=== PATIENT | male | born 1995 | race Caucasian/White ===

== ENCOUNTER 2017-08-05 07:37 | Inpatient (IN) | payer BC, OTHER ==
[~2017-08-05] VITALS: Ht 180.3 cm; Wt 76.2 kg
[2017-08-05] MEDS ORDERED: hydrALAZINE HCL 50 MG TABLET PO PRN (11:15)
[2017-08-05] MEDS ORDERED: LORAZEPAM 1 MG TABLET PO PRN (11:15)
[2017-08-05] MEDS ORDERED: ACETAMINOPHEN 325 MG TABLET PO PRN (11:15)
[2017-08-05] MEDS ORDERED: NICOTINE 14 MG/24HR PATCH TD PRN (11:15)
[2017-08-05] MEDS ORDERED: NICOTINE POLACRILEX 4 MG GUM-PK OF TEN BC PRN (11:15)
[2017-08-05] MEDS ORDERED: ONDANSETRON ODT 4 MG TAB.RAPDIS SL PRN (11:15)
[2017-08-05] MEDS ORDERED: MAGNESIUM HYDROXIDE 30 ML LIQUID UDC PO PRN (11:15)
[2017-08-05] MEDS ORDERED: ONDANSETRON 4 MG/2 ML VIAL IM PRN (11:15)
[2017-08-05] MEDS ORDERED: MIRALAX 17 GM POWD.PACK PO PRN (11:15)
[2017-08-05] MEDS ORDERED: diphenhydrAMINE 50 MG CAPSULE PO PRN (11:15)
[2017-08-05] MEDS ORDERED: METHOCARBAMOL 750 MG TABLET PO PRN (11:15)
[2017-08-05] MEDS ORDERED: DICYCLOMINE HCL 20 MG TABLET PO PRN (11:15)
[2017-08-05] MEDS ORDERED: HYDROXYZINE PAMOATE 25 MG CAPSULE PO PRN (11:15)
[2017-08-05] MEDS ORDERED: MAG HYDROX/AL HYDROX/SIMETH 30 ML LIQUID UDC PO PRN (11:15)
[2017-08-05] MEDS ORDERED: LOPERAMIDE HCL 2 MG CAPSULE PO PRN ×2 (11:15)
[2017-08-05] MEDS ORDERED: IBUPROFEN 600 MG TABLET PO PRN (11:15)
[2017-08-05] MEDS ORDERED: BUPRENORPHINE HCL 2 MG TAB.SUBL SL PRN (11:15)
[2017-08-05 11:16] VITALS: BP 174/95
--- NOTE | 2017-08-05 11:25 | NUR ---
PRE ADMISSION NOTE pt is a 22 yr old male, AA&Ox4. pt is presenting himself to [facility] for heroin and Suboxone use. Pt is noted with anxiety m/b difficulty staying still. Pt is c/o nasal congestion chills and fatigue. VS are BP 174/95 HR 108, R 18, T 98.5 O2 is at 96%. Pt was seen and examined by Dr. Fischer. Pt will be admitted onto the 3rd unit. Will continue to f/u.
[2017-08-05 11:40] VITALS: BP 149/87
[2017-08-05] MEDS ORDERED: TRAZ-144 PO (11:58)
[2017-08-05] MEDS ORDERED: GABA-534 PO (11:59)
[2017-08-05 12:00] VITALS: BP 166/97
[2017-08-05] MEDS ORDERED: GABA600T2 PO (12:00)
[2017-08-05] MEDS ORDERED: PROP10TA10 PO (12:01)
[2017-08-05] MEDS ORDERED: NALO4SPR NS (12:09)
[2017-08-05 12:16] LABS: *AMPHETAMINE, URINE NEGATIVE (NEGATIVE); *BARBITURATE, URINE NEGATIVE (NEGATIVE); *CANNABINOID, URINE NEGATIVE (NEGATIVE); *COCCAINE, URINE NEGATIVE (NEGATIVE); *OPIATE, URINE NEGATIVE (NEGATIVE); *PHENCYCLIDINE SCREEN,URINE NEGATIVE (NEGATIVE)
[2017-08-05] MEDS ORDERED: NEOM28.37 TP (12:21)
--- NOTE | 2017-08-05 12:30 | NUR ---
DISCHARGE NOTE Pt is a 22 yr old male, AA&Ox4. Pt is presenting himself to [facility] for heroin and Suboxone use. Pt is noted with anxiety m/b difficulty staying still. Pt is c/o hot sweats, stuffy nose, and fatigue. Pt's pupils are largely dilated. Skin is intact, warm and moist to touch. Body check was complete. pt is noted with multiple track valle on both arms. Lung sounds are clear bilaterally. Pt states of having PMH of Anxiety, Depression, Insomnia, Scheuermann's Disease, seasonal allergic rhinitis, and HTN. Pt denies any past surgical hx or any hx of seizures. Pt denies any allergies to medication or food. All home medication was reconciled. SUBSTANCE USE: 1. Heroin - Pt states of first using heroin at the age of 18 yrs old. Pt states he was sober for one year then relapsed about a year ago. Pt states he was using 1-2g IV daily for the past year. Last use was on 07/31/17, pt states of using 0.25g IV. 2. Suboxone - Pt states of first using Suboxone on January 09, 2016 for Suboxone maintenance. Pt states of going into treatment on 08/01/17 to [facility] for heroin use and was place on Suboxone 16mg Daily. Pt states last dose was on 08/04/17 and consumed 8mg SL in the morning. Pt states he was administratively discharged from previous treatment center. Pt states due to relationships, feeling lonely and life event stress caused him to relapse. Pt states of wanting to live a sober lifestyle and continue with school. Pt states "I want to be proud of myself". Pt was seen and examined by Dr. Fischer. Pt is to start on 5 day Subutex taper, starting today at 1700. COWS score upon admission was 8. Pt was educated on medication regimen and plan of care. Pt was able to verbalize understanding. P will be on fall precautions. Call light is within reach. Will continue to monitor. Addendum: 08/05/17 at 1529 by BLUE PALOMINO LVN ERROR IN DOCUMENTATION Documentation is ADMISSION NOTE and not DISCHARGE NOTE In addition, pt states PCP is Dr. Cabrales
[2017-08-05] MEDS: CLONIDINE HCL 0.1 MG TABLET PO PRN (13:37)
--- NOTE | 2017-08-05 13:37 | NUR ---
PRN GIVEN pt is noted with increase BP of 166/97. Pt is c/o sweats. Clonidine 0.1mg PO PRN was given. Medication austin well. Encouraged increase fluid intake for hydration. Will continue to monitor.
[2017-08-05] MEDS: GABAPENTIN 300 MG CAPSULE PO SCH ×2 (14:32→20:07)
--- NOTE | 2017-08-05 14:40 | NUR ---
PRN RE-ASSESSMENT Clonidine 0.1mg PO PRN was effective. BP was 149/87. Encouraged increase fluid intake for hydration. Will continue to monitor.
[2017-08-05] MEDS ORDERED: BUPR-96 PO (15:00)
[2017-08-05 15:41] LABS: BASOPHILS # (AUTO) 0.1 K/uL (0.0-8.0); BASOPHILS % (AUTO) 0.9 % (0.0-2.0); EOSINOPHILS # (AUTO) 0.6 K/uL (0.0-0.7); EOSINOPHILS % (AUTO) 5.7 % (0.0-7.0); HEMATOCRIT 41.2 % (36.7-47.1); LYMPHOCYTES # (AUTO) 3.7 K/uL (20.0-40.0); LYMPHOCYTES % (AUTO) 34.1 % (20.5-51.5); MEAN CORPUSCULAR HEMOGLOBIN 28.3 uug (23.8-33.4); MEAN CORPUSCULAR HGB CONC 34 g/dL (32.5-36.3); MONOCYTES # (AUTO) 0.8 K/uL (2.0-10.0); MONOCYTES % (AUTO) 7.1 % (0.0-11.0); NEUTROPHILS # (AUTO) 5.7 K/uL (1.8-8.9); NEUTROPHILS % (AUTO) 52.2 % (38.5-71.5); PLATELET COUNT (AUTO) 211 K/uL (152-348); RED BLOOD CELL COUNT(AUTO) 4.96 MIL/uL (4.06-5.63); WHITE BLOOD COUNT (AUTO) 10.8 K/uL (3.6-10.2)
[2017-08-05 15:53] LABS: ETHANOL < 3 MG/DL (0-0)
[2017-08-05 15:56] LABS: ALANINE AMINOTRANSFERASE 34 U/L (16-63); ALKALINE PHOSPHATASE 85 U/L (50-136); ASPARTATE AMINOTRANSFERASE 14 U/L (15-37); BILIRUBIN,TOTAL 0.2 mg/dL (0.2-1.0); CARBON DIOXIDE 31 mmol/L (21-32); CHLORIDE 105 mmol/L (98-107); CREATININE 0.9 mg/dL (0.6-1.3); GLUCOSE 93 mg/dL (74-106); POTASSIUM 4.2 mmol/L (3.5-5.1); TOTAL PROTEIN, SERUM 7.5 g/dL (6.4-8.2); UREA NITROGEN, BLOOD 15 mg/dL (7-18)
[2017-08-05 16:30] VITALS: BP 137/94
[2017-08-05] MEDS: BUPRENORPHINE HCL 2 MG TAB.SUBL SL SCH ×2 (16:37→20:10)
--- NOTE | 2017-08-05 17:37 | NUR ---
MEDICATION REFUSED Pt refused to take Subutex 4mg SL as scheduled at 1700. Pt was educated on the risks and benefits. Pt was able to verbalize understanding but continue to refuse. COWS score was 7. Dr. Fischer was made aware.
--- NOTE | 2017-08-05 18:50 | NUR ---
END OF SHIFT Pt is a 22 yr old male, AA&Ox4. Pt is a newly admit for opiate w/d and is to start on 5 day Subutex taper as ordered. Pt was observed with anxiety m/b difficulty staying still. Skin is intact, warm and moist to touch. Pt c/o nasal congestion and sweats. Pt refused to take Subutex 4mg SL as scheduled at 1700. Pt was educated on the importance of the medication. Pt was able to verbalize understanding but continued to refuse. Pt has been cooperative with plan of care and attended group therapy. Pt received Clonidine 0.1mg PO PRN at 1337 for increase BP. Last BP was 137/94 at 1630. Pt was encouraged increase fluid intake for hydration. Last COWS score was 7 at 1630. Safety precautions observed. Call light is within reach.
--- NOTE | 2017-08-05 19:58 | NUR ---
START OF SHIFT NOTE Received report from outgoing nurse. Pt. is in his room and is A/O to person, place, time, and purpose. Pt. presents with anxiety, restlessness, flat affect, body aches, chills, sweats, and disheveled appearance. Pt. states he is beginning to feel the start of withdrawal symptoms coming on. Pt. denies S/I and H/I. Pt. was encourage to attend group therapy sessions and he did. Pt. was given PRN Clonidine 0.1 mg @ 1337 for increased BP. Noted effective after 1 hour. Last COWS 7 ! 1630. Pt. is on a 5 day Subutex taper. Call light is within reach. Pt. will continue to be monitored and needs met.
[2017-08-05 20:00] VITALS: BP 128/94
[2017-08-05] MEDS: TRAZODONE 50 MG TABLET PO PRN (20:11)
--- NOTE | 2017-08-05 20:11 | NUR ---
PRN ADMINISTRATION PRN Trazodone 50 mg given. Pt. c/o restlessness and anxiety leading to insomnia. Will reassess in 1 hour.
--- NOTE | 2017-08-05 21:11 | NUR ---
PRN REASSESSMENT Pt. is in bed w/ his eyes closed. Pt.'s breathing is even and unlabored.
--- NOTE | 2017-08-06 | NUR ---
RN NOTE Pt. deferred COWS. Pt. is in bed w/his eyes closed. Pt.'s breathing is unlabored and even.
--- NOTE | 2017-08-06 04:22 | NUR ---
RN NOTE Pt. deferred COWS and refused V/S. Pt. is in bed w/ his eyes closed. Pt.'s breathing is even and unlabored.
--- NOTE | 2017-08-06 07:04 | NUR ---
END OF SHIFT NOTE Endorsed pt. to oncoming nurse. Pt. is in his room and is A/O to person, place, time, and purpose. Pt. continues to present with anxiety, restlessness, flat affect, body aches, chills, sweats, and disheveled appearance. Pt. states he is beginning to feel the start of withdrawal symptoms coming on. Pt. denies S/I and H/I. Pt. was encourage to attend group therapy sessions and he did. Pt. was given PRN Trazodone 50 mg @ 2010 for increased anxiety and restlessness leading to insomnia. Noted effective after 1 hour. Pt.s fluid intake was 500 ml. Pt. voided 1 time and slept for 8 hrs. Last COWS 9 @ 1999. Call light is within reach.
--- NOTE | 2017-08-06 07:23 | NUR ---
BEGINNING OF SHIFT Patient endorsement report received from supervisor turkey farm nurse, all pertinent information discussed. Patient is a 22 year old male with admitting Dx: Opiate withdrawal. Patient currently under close observation, continues with ongoing 5 day Subutex taper, patient scheduled to begin day 2 of taper, as per report patient has been refusing subutex detox medication. Patients fall and seizure precautions in place and observed at all times. Patient with last Cow score: 9. Patient received in bed with eyes closed respirations even and unlabored, responsive to verbal stimuli. will educated regarding plan of care for the day, and medication regimen. Patient received PRN: Trazodone, during supervisor turkey farm. will continue to monitor closely. safety measures in place.
[2017-08-06] MEDS ORDERED: TUBERCULIN,PURIF.PROT.DERIV. 5 TU/0.1 ML TEST ID ONE (09:00)
[2017-08-06] MEDS ORDERED: BUPRENORPHINE HCL 2 MG TAB.SUBL SL SCH ×2 (09:00→15:00)
--- NOTE | 2017-08-06 09:00 | NUR ---
REFUSED SUBUTEX Patient refused detox medication Subutex 0900 dose. Patient presented with; elevated heart rate, difficulty sitting still, enlarged pupils, mild bone and joint aches, moist eyes, tremors, yawning, anxiety and gooseflesh, cow score of: 13, patient was explained risk vs benefits of refusing detox medications, with good verbal understanding, but as per "i dont want to take it" Patient was educated regarding s/sx of withdrawal symptoms, and encouraged patient to notify staff nurse, charge nurse, or MD of increase in s/sx of withdrawal, with good verbal understanding. safety measures are in place. call light with in reach, encouraged increase in PO fluid intake as tolerated. will continue to monitor closely.
[2017-08-06] MEDS: buPROPion XL 150 MG TAB.SR.24H PO SCH (09:15)
[2017-08-06] MEDS: LORATADINE 10 MG TABLET PO SCH (09:15)
[2017-08-06] MEDS: GABAPENTIN 300 MG CAPSULE PO SCH ×3 (09:15→20:17)
[2017-08-06 09:27] VITALS: BP 139/70
[2017-08-06] MEDS: CLONIDINE HCL 0.1 MG TABLET PO PRN ×2 (09:59→20:18)
--- NOTE | 2017-08-06 09:59 | NUR ---
PRN CLONIDINE/ROBAXIN/IBUPROFEN Patient with increase anxiety/agitation, chills, complain of generalized body aches along with muscle aches 09/28, patient was administered clonidine 0.1mg PO, Robaxin 750mg PO, and Ibuprofen as prescribed, will monitor effectiveness of medications.
--- NOTE | 2017-08-06 10:59 | NUR ---
CLONIDINE/ROBAXIN/IBUPROFEN REASSESSMENT Patient reports medication effective, as per patient feels less anxious and agitated. pain level currently at 2/10, per patient tolerable level. safety measures in place. call light kept with in reach, will continue to monitor closely.
[2017-08-06 12:07] LABS: HEPATITIS B SURFACE AG Negative (Negative)
[2017-08-06 13:11] VITALS: BP 123/79
[2017-08-06] MEDS ORDERED: GABA-534 PO (14:50)
[2017-08-06] MEDS ORDERED: HYDR-3895 PO (14:50)
[2017-08-06] MEDS ORDERED: IBUP-1955 PO (14:50)
[2017-08-06] MEDS ORDERED: LORA-114 PO (14:50)
[2017-08-06] MEDS ORDERED: METH-406 PO (14:50)
[2017-08-06] MEDS ORDERED: DICY20TA28 PO (14:50)
--- NOTE | 2017-08-06 17:05 | NUR ---
Therapist prompted client to attend daily group sessions. Client related that he would attend the next group session.
[2017-08-06 17:38] VITALS: BP 120/78
--- NOTE | 2017-08-06 19:02 | NUR ---
END OF SHIFT Patient monitored closely during shift. Patient alert and oriented x4. Patient with refusal of detox medications, Dr. Fischer aware, as per Dr. fischer detox taper was discontinued. Patient is cleared to be discharged tomorrow morning, patient noted self motivated towards sobriety. Patient presented with: elevated heart rate, chills, difficulty sitting still, bone and joint aches, nasal congestion, moist eyes, tremors that can be felt but not seen, yawning, and anxiety and goosebump. Initial cow score of: 13, last cow score of: 8. Patient received PRN: Clonidine, Robaxin and ibuprofen, medications with relief. Patient encouraged participation in therapy sessions, patient denies any SI/HI, noted attending and participating. Patient was encouraged to verbalize feelings, encouraged to develop coping skills and utilization of non pharmacological interventions. Encouraged patient to increase PO fluid intake as tolerated. Patients safety measures are in place. call light kept within reach, will continue to monitor. Endorsed to tailings dam pumper nurse, all pertinent information discussed.
--- NOTE | 2017-08-06 19:47 | NUR ---
START OF SHIFT NOTE Received report from outgoing nurse. Pt. is a 22 y/o male A/O to person, place, time, and purpose. Pt. was admitted for medically supervised withdrawal from Opiates. Pt. present w/ anxiety, body and joint aches. Sweats, and chills. Pt. was given PRN Clonidine 0.1 mg, Robaxin 750 mg, and Motrin 600 mg @ 0959 for anxiety and elevated BP, noted effective after 1 hour. Pt. denies S/I and H/I. Last COWS 8 @ 1600. Call light within reach. Pt. will continue to be monitored and needs met.
[2017-08-06 20:00] VITALS: BP 152/93
--- NOTE | 2017-08-06 20:18 | NUR ---
PRN ADMINISTRATION PRN Clonidine 0.1 mg given. Pt.'s BP 152/93. Pt. is asymptomatic. Pt.'s breathing is even and unlabored. All other V/S WNL. Pt. preferred Clonidine over Propranolol. Will reassess in 1 hr.
[2017-08-06] MEDS: PROPRANOLOL HCL 10 MG TABLET PO SCH (20:50)
--- NOTE | 2017-08-06 21:18 | NUR ---
PRN REASSESSMENT Pt. is in bed w/ his eyes closed. Pt.'s breathing is unlabored and even.
[2017-08-06] MEDS: TRAZODONE 50 MG TABLET PO PRN (21:59)
--- NOTE | 2017-08-07 00:14 | NUR ---
RN NOTE Pt. deferred COWS and refused V/S. Pt. is in bed w/ his eyes closed. Pt.'s breathing is unlabored and even.
--- NOTE | 2017-08-07 04:18 | NUR ---
RN NOTE Pt. deferred COWS and refused V/S. Pt. is in bed w/ his eyes closed. Pt.'s breathing is unlabored and even.
--- NOTE | 2017-08-07 07:16 | NUR ---
END OF SHIFT NOTE Endorsed Pt. to oncoming nurse. Pt. is a 22 y/o male A/O to person, place, time, and purpose. Pt. was admitted for medically supervised withdrawal from Opiates. Pt. continues to present w/ anxiety, body and joint aches, sweats, and chills. Pt. was given PRN Clonidine 0.1 mg @ 2017 for increased BP of 152/93, noted effective. Pt.s fluid intake was 855 ml. Pt. voided 3 times and slept for 6 hrs. Last COWS 8 @ 1999. Call light within reach.
[2017-08-07 08:00] VITALS: BP 147/80
--- NOTE | 2017-08-07 08:00 | NUR ---
START OF SHIFT: RECEIVED PT A/O X 4. HE PRESENTS WITH ANXIOUS MOOD AND CONGRUENT AFFECT. HE REPORTS ANXIETY ABOUT DISCHARGING THIS AM BUT EXPRESSES ENTHUSIASM TOWARD RECOVERY. COWS 5. HE IS FIDGETY AND REPORTS RESTLESSNESS. OFFERED SUPPORT. WILL CONTINUE WITH DISCHARGE PROCESS.
[2017-08-07 08:23] VITALS: BP 147/80
[2017-08-07] MEDS: PROPRANOLOL HCL 10 MG TABLET PO SCH (08:23)
[2017-08-07] MEDS: LORATADINE 10 MG TABLET PO SCH (08:24)
[2017-08-07] MEDS: GABAPENTIN 300 MG CAPSULE PO SCH (08:24)
[2017-08-07] MEDS: buPROPion XL 150 MG TAB.SR.24H PO SCH (08:24)
[2017-08-07] MEDS ORDERED: BUPRENORPHINE HCL 2 MG TAB.SUBL SL SCH (09:00)
--- NOTE | 2017-08-07 10:05 | NUR ---
DISCHARGE: PT IS A/O X 4. HE DENIES S/I AND H/I. EDUCATED PT ON DISCHARGE INSTRUCTIONS AND MEDS. PT EXPRESSED VERBAL UNDERSTANDING OF EDUCATION. BELONGING RETURNED. PT EXPRESSED MOTIVATION TO STAY CLEAN. PT ESCORTED TO [facility] WHERE HE WAS TRANSPORTED TO [facility] BY TRUMAN MAURICIO AT 0930.
[2017-08-08] MEDS ORDERED: BUPRENORPHINE HCL 2 MG TAB.SUBL SL SCH (09:00)
[2017-08-09] MEDS ORDERED: BUPRENORPHINE HCL 2 MG TAB.SUBL SL SCH (09:00)
== END 2017-08-07 09:30 | disposition other institution (70) | DRG 895 ==
LOC: SRC 10:25
PROVIDERS: ADMIT Internal Medicine; ATTEND Internal Medicine
PROC: HZ41ZZZ Group Counseling for Substance Abuse Treatment, Behavioral (ICD-10-PCS; principal; 2017-08-05)
PROC: HZ2ZZZZ Detoxification Services for Substance Abuse Treatment (ICD-10-PCS; principal; 2017-08-05)
DX: F11.23 Opioid dependence with withdrawal (principal); F33.1 Major depressive disorder, recurrent, moderate; I15.9 Secondary hypertension, unspecified; F10.10 Alcohol abuse, uncomplicated; Y90.0 Blood alcohol level of less than 20 mg/100 ml; M42.00 Juvenile osteochondrosis of spine, site unspecified; G47.00 Insomnia, unspecified; Z59.1 Inadequate housing; Z91.89 Other specified personal risk factors, not elsewhere classified; F17.210 Nicotine dependence, cigarettes, uncomplicated; J30.2 Other seasonal allergic rhinitis; F41.9 Anxiety disorder, unspecified; Z79.899 Other long term (current) drug therapy; F13.10 Sedative, hypnotic or anxiolytic abuse, uncomplicated; F14.10 Cocaine abuse, uncomplicated; F15.10 Other stimulant abuse, uncomplicated; D72.829 Elevated white blood cell count, unspecified
CPT/HCPCS: 36415; 70030-TC; 80307; 83735; 85025; 86592; 86705; 86803; 87340; 87806; A4663; G0480